=== PATIENT | female | born 1995 | race Caucasian/White ===

== ENCOUNTER 2016-06-18 07:18 | Emergency (ER) | payer OTHER ==
[~2016-06-18] VITALS: Ht 157.5 cm; Wt 52.2 kg
[~2016-06-18 07:18] MED LIST: ANUSOL HC-HEMOR1 SUP RC; ANUSOL-HC25 M1 RC; AUGMENTIN 875-1 EACH PO; DOXYCYCLINE HY100 MG PO; LOMOTIL 2.5-0.1 EACH PO; PROVENTIL HFA6.7 GM INH; TESSALON PERLE100 M1 PO; TRAMADOL HCL50 M1 PO
--- NOTE | 2016-06-18 07:39 | ED GI/GU/ABDOMINAL COMPLAINT ---
History of Present Illness General Chief Complaint: Abdominal Pain/Flank Pain Stated Complaint: ABD PAIN X1HR Source: patient, family Exam Limitations: no limitations Vital Signs & Intake/Output Vital Signs & Intake/Output Vital Signs Date Time Temp Pulse Resp B/P Pulse O2 O2 Flow FiO2 Ox Delivery Rate 06/18 1131 98.6 85 18 114/84 98 Room Air 06/18 0907 97.6 76 18 112/73 98 Room Air 06/18 0845 63 18 118/75 100 Room Air 06/18 0728 98.6 88 18 115/78 100 Room Air Allergies Coded Allergies: NO KNOWN ALLERGIES (03/22/16) Reconcile Medications Albuterol Sulfate (Proventil Hfa) 90 MCG HFA.AER.AD 2 PUF INH Q4 PRN SEVERE COUGH Amoxicillin/Potassium Clav (Augmentin 875-125 Tablet) 875 MG-125 MG TABLET 1 TAB PO BID SINUSITIS Anusol Hc (Anusol Hc-Hemorrhoidal Hc Supp) 1 SUP SUP 1 SUP RC BID ANAL FISSURE Anusol Hc (Anusol-Hc) 25 MG SUPP.RECT 1 SUP RC BID PRN rectal bleeding Benzonatate (Tessalon Perle) 100 MG CAPSULE 1 CAP PO TID PRN COUGH Diphenoxylate HCl/Atropine (Lomotil 2.5-0.025 MG Tablet) 2.5 MG-0.025 MG TABLET 1 TAB PO 4 TIMES/DAY PRN DIARRHEA TWENTY...[id number] Doxycycline Hyclate 100 MG CAP 100 MG PO DAILY ACNE (Reported) Hydromorphone HCl (Dilaudid) 2 MG TABLET 1 TAB PO BIDP PRN PAIN Tramadol HCl 50 MG TABLET 1 TAB PO BIDP PRN pain Triage Nurses Notes Reviewed? yes ? N Is pt currently ? No Onset: Abrupt Duration: hour(s): (1) Timing: single episode today Quality/Severity: sharpness, severe, stabbing Severity Numbers: 10 Location: left lower quadrant Activities at Onset: sleep No Modifying Factors: none Associated Symptoms: abdominal pain, NAUSEA HPI: This is a 20-year-old female presents to the ER with her mother for chief complaint of sudden onset of left lower quadrant abdominal pain severe, sharp in nature which woke her up from sleep. No history of similar symptoms. Denies any vomiting but was nauseous earlier home. Denies any fever or chills. Denies chance of . Patient with history of endometriosis, ovarian cyst with prior ovarian cystectomy. She also has a history of ulcerative colitis on prednisone and mild. Patient denies any similar symptoms with previous ovarian cyst. Past History Travel History Traveled to [place] past 21 day No Medical History Any Pertinent Medical History? 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 Yes Review of Systems Review of Systems Constitutional: Denies: chills, fever. EENTM: Reports: no symptoms. Respiratory: Denies: cough, short of breath. Cardiovascular: Denies: chest pain. GI: Reports: abdominal pain, nausea. Denies: vomiting. Genitourinary: Denies: discharge, dysuria, frequency, hematuria. Musculoskeletal: Denies: back pain. Skin: Reports: no symptoms. Neurological/Psychological: Reports: no symptoms. Hematologic/Endocrine: Denies: bruising, bleeding, polyuria, polydipsia. Immunologic/Allergic: Denies: splenectomy. All Other Systems: Reviewed and Negative Physical Exam Physical Exam General Appearance: alert, awake, anxious, moderate distress, thin Head: atraumatic, active bleeding Eyes: Bilateral: normal appearance, PERRL, EOMI. Ears, Nose, Throat, Mouth: hearing grossly normal, moist mucous membrane Neck: normal inspection, supple, full range of motion Respiratory: normal breath sounds, chest non-tender, no respiratory distress Cardiovascular: regular rate/rhythm Peripheral Pulses: 2+ radial (R), 2+ radial (L) Gastrointestinal: normal bowel sounds, soft, tenderness (LLQ) Extremities: normal range of motion Neurologic/Psych: no motor/sensory deficits, awake, alert, oriented x 3 Skin: intact, normal color, warm/dry Core Measures ACS in differential dx? No Severe Sepsis Present: No Septic Shock Present: No Progress Differential Diagnosis: ectopic , kidney stone, ovarian cyst, ovarian torsion, UTI/pyelo Plan of Care: Orders Procedure Date/time Status URINALYSIS 06/18 899 Complete Add-on Test (ER Only) 06/18 0754 Active PARTIAL THROMBOPLASTIN TIME 06/18 737 Complete PROTHROMBIN TIME 06/18 737 Complete HUMAN BETA HCG SCREEN 06/18 737 Complete CBC WITHOUT DIFFERENTIAL 06/18 737 Complete TYPE & SCREEN (NOT X-MATCH) 06/18 737 Complete COMPREHENSIVE METABOLIC PANEL 06/18 729 Complete Laboratory Tests 06/18/16 1039: Urine Color STRAW, Urine Clarity CLEAR, Urine pH 6.5, Ur Specific [place] 1.015, Urine Protein NEG, Urine Ketones NEG, Urine Nitrite NEG, Urine Bilirubin NEG, Urine Urobilinogen 0.2, Ur Leukocyte Esterase NEG, Ur Microscopic SEDIMENT EXAMINED, Urine RBC 5-10 H, Urine Hemoglobin MOD H, Urine Glucose NEG 06/18/16 0748: Sodium Cancelled, Potassium Cancelled, Chloride Cancelled, Carbon Dioxide Cancelled, Anion Gap Cancelled, BUN Cancelled, Creatinine Cancelled, BUN/ Creatinine Ratio Cancelled, Glucose Cancelled, Calcium Cancelled, Total Bilirubin Cancelled, AST Cancelled, ALT Cancelled, Alkaline Phosphatase Cancelled, Total Protein Cancelled, Albumin Cancelled, Globulin Cancelled, Albumin/Globulin Ratio Cancelled, APTT Cancelled 06/18/16737: PT 9.5, INR 0.90, APTT 24 L 06/18/16729: Anion Gap 13, Estimated GFR > 60, BUN/Creatinine Ratio 28.3 H, Glucose 105 H, Calcium 9.1, Total Bilirubin 0.3, AST 16, ALT 24, Alkaline Phosphatase 58, Total Protein 6.3, Albumin 3.3 L, Globulin 3.0, Albumin/Globulin Ratio 1.1, Total Beta HCG NEGATIVE, CBC w Diff NO MAN DIFF REQ, RBC 3.52 L, MCV 90.3, MCH 29.9, RDW 14.6 H, MPV 5.8 L, Gran % 83.4 H, Lymphocytes % 12.4 L, Monocytes % 3.9, Eosinophils % 0.1, Basophils % 0.2, Absolute Granulocytes 11.1 H, Absolute Lymphocytes 1.7, Absolute Monocytes 0.5, Absolute Eosinophils 0, Absolute Basophils 0, PUBS MCHC 33.2 8:45 am iv morphine ordered. pain somewhat improved after iv toradol but still present. 9:09 am iv zofran, iv tylenol ordered. u/s pending. 06/18/2016 9:20:27 AM Patient is screaming out in pain. IV Dilaudid ordered. Reading room called and states ultrasound report should be back in about [address] scan of the abdomen shows some perinephric fluid, question of recently passed stone. Patient provided urinary strainer, follow-up with MANAGER [facility]PDES[facility] and urology. Comfortable at time of discharge. Plan of care discussed also with mother at bedside. (RICH CALIXTO,VANESSA) Diagnostic Imaging: Viewed by Me: CT Scan, Ultrasound. Discussed w/RAD: CT Scan, Ultrasound. Radiology Impression: PATIENT: REBEL ZAMORA PRESENT AGE: 20 PATIENT ACCOUNT NO: [id number] : 96 LOCATION: [facility] ORDERING PHYSICIAN: VANESSA VILLANUEVA MD SERVICE DATE: 06/18/16 EXAM TYPE: US - US-TRANSVAGINAL EXAMINATION: ULTRASOUND PELVIC, COMPLETE CLINICAL INFORMATION: Sudden onset left lower quadrant pain, one hour prior to admission. COMPARISON: CT abdomen and pelvis 05/15/2016 TECHNIQUE: Transabdominal and transvaginal imaging of the pelvis was performed. FINDINGS: The anteverted uterus is of normal size and echogenicity measuring 5.3 x 2.9 x 4.0 cm. A regular homogeneous endometrium is identified measuring 0.2 cm. Both ovaries are of normal size and echogenicity. The right measures 2.5 x 1.4 x 1.2 cm for a volume of 2.32 mL. The left measures 2.1 x 1.9 x 1.1 cm for a volume of 2.35 mL. Normal arterial and venous flow is identified within both ovaries. There is moderate amount of pelvic free fluid in the anterior cul-de-sac. IMPRESSION: 1. Arterial and venous flow identified in both ovaries. 2. Moderate amount of free fluid in the anterior cul-de-sac. DICTATED BY: YAMILET PENA MD DATE/TIME DICTATED:06/18/16910 NURSING PROGRAM COORDINATOR:BETTY DATE/TIME TRANSCRIBED:910 CONFIDENTIAL, DO NOT COPY WITHOUT APPROPRIATE AUTHORIZATION. < Electronically signed in Other Vendor System> SIGNED BY: YAMILET PENA MD 06/18/16920 Initial ED EKG: none Departure Departure Time of Disposition: 1119 Disposition: HOME OR SELF CARE Condition: Stable Clinical Impression Primary Impression: Free fluid in pelvis Secondary Impressions: Hematuria Referrals: CHELSIE CALIXTO,FROY Valladares (PCP/Family) PEGGY CALIXTO,BECCA DAMON MD,KRISTA [place] Additional Instructions: Follow-up with your MANAGER HELPDESK Dr. Damon and with Dr. Mcgee who is listed on your discharge papers. Continue your regular medications. Take the pain medication as directed which is at your pharmacy. Strain your urine. Drink plenty of fluids. Return to the ER for any changing or worsening symptoms. Departure Forms: Customer Survey General Discharge Information Prescriptions: Current Visit Scripts Hydromorphone HCl (Dilaudid) 1 TAB PO BIDP PRN PAIN #10 TAB
[2016-06-18 08:08] LABS: ABSOLUTE BASOPHIL COUNT 0 /CUMM (0.0-0.2); ABSOLUTE EOSINOPHIL COUNT 0 /CUMM (0.0-0.7); ABSOLUTE GRANULOCYTE CT 11.1 /CUMM (1.4-6.5); ABSOLUTE LYMPH COUNT 1.7 /CUMM (1.2-3.4); ABSOLUTE MONOCYTE COUNT 0.5 /CUMM (0.10-0.60); BASOPHIL % 0.2 % (0.0-2.0); EOSINOPHIL % 0.1 % (0-5); HEMATOCRIT 31.8 % (37-47); MEAN CORPUSCULAR HGB 29.9 PG (27.0-31.0); MEAN CORPUSCULAR HGB CONC 33.2 G/DL (33.0-37.0); MEAN CORPUSCULAR VOLUME 90.3 FL (81.0-99.0); MEAN PLATELET VOLUME 5.8 FL (7.4-10.4); PLATELET COUNT 627 /CUMM (130-400); RBC DISTRIBUTION WIDTH 14.6 % (11.5-14.5); RED BLOOD CELL CT 3.52 /CUMM (4.20-5.40); WHITE BLOOD CELL COUNT 13.3 /CUMM (4.8-10.8)
[2016-06-18 08:23] LABS: PT 9.5 SEC (9.4-12.5); PTT 24 SEC (25-37)
[2016-06-18 08:27] LABS: GRANULOCYTE % 83.4 % (42.2-75.2)
--- NOTE | 2016-06-18 09:21 | ULTRASOUND REPORT ---
EXAMINATION: ULTRASOUND PELVIC, COMPLETE CLINICAL INFORMATION: Sudden onset left lower quadrant pain, one hour prior to admission. COMPARISON: CT abdomen and pelvis 05/15/2016 TECHNIQUE: Transabdominal and transvaginal imaging of the pelvis was performed. FINDINGS: The anteverted uterus is of normal size and echogenicity measuring 5.3 x 2.9 x 4.0 cm. A regular homogeneous endometrium is identified measuring 0.2 cm. Both ovaries are of normal size and echogenicity. The right measures 2.5 x 1.4 x 1.2 cm for a volume of 2.32 mL. The left measures 2.1 x 1.9 x 1.1 cm for a volume of 2.35 mL. Normal arterial and venous flow is identified within both ovaries. There is moderate amount of pelvic free fluid in the anterior cul-de-sac. IMPRESSION: 1. Arterial and venous flow identified in both ovaries. 2. Moderate amount of free fluid in the anterior cul-de-sac.
--- NOTE | 2016-06-18 10:59 | CT SCAN REPORT ---
EXAMINATION: CT ABDOMEN AND PELVIS WITH CONTRAST CLINICAL INFORMATION: Colitis. Severe left lower quadrant pain COMPARISON: 05/15/2016 TECHNIQUE: Multidetector volumetric imaging was performed of the abdomen and pelvis before and after the IV administration of 100 mL of Omnipaque 300 intravenous contrast. Sagittal and coronal reformatted images were obtained on the technologist's workstation. DLP: 263 mGy-cm. FINDINGS: LUNG BASES: The visualized lung bases are unremarkable. LIVER, GALLBLADDER, AND BILIARY TREE: The liver is normal in size, shape, and attenuation. No focal hepatic lesion or biliary ductal dilatation is present. The gallbladder is unremarkable with no evidence of radiopaque gallstones, gallbladder wall thickening, or obvious pericholecystic inflammatory changes. PANCREAS: Unremarkable. SPLEEN: Prominent splenule inferiorly. ADRENAL GLANDS: Unremarkable. KIDNEYS AND URETERS: There are asymmetric nephrograms with the left delayed compared to right. No definite hydronephrosis. The renal arteries appear to be grossly patent and the renal vein is also patent. There is minimal left perinephric stranding. BLADDER: Unremarkable. GASTROINTESTINAL TRACT: Previously noted inflammatory changes about the distal colon has been resolved. No fluid collections. Moderate amount stool right colon. Cecal base normal. ABDOMINAL WALL: No significant hernia is appreciated. LYMPH NODES: Normal. VASCULAR: Unremarkable. PELVIC VISCERA: Unremarkable. Physiologic free fluid. OSSEOUS STRUCTURES: Unremarkable. IMPRESSION: 1. No residual or recurrent colitis pattern distal colon when correlated to baseline. No residual abnormality or any fluid collection. 2. Asymmetric delayed nephrogram on the left with patency of the vessels. This may be on the basis of infection. Correlate clinically. There is mild perinephric fluid but no hydronephrosis.
[2016-06-18] MEDS ORDERED: DILAUDID2 M1 PO (11:22)
[2016-06-18 11:31] VITALS: BP 114/84
== END 2016-06-18 11:54 ==
LOC: ERH 07:18
PROVIDERS: Emergency Medicine
DX: R18.8 Other ascites (principal); R31.9 Hematuria, unspecified
CPT/HCPCS: 74177; 81001; 96374; 96375; J0131; J1885; J2405

== ENCOUNTER 2016-09-20 22:36 | Emergency (ER) | payer OTHER ==
[~2016-09-20] VITALS: Ht 162.6 cm; Wt 54.4 kg
[~2016-09-20 22:36] MED LIST changes: +DILAUDID2 M1 PO
--- NOTE | 2016-09-21 00:04 | ED THROAT/DENTAL COMPLAINT ---
History of Present Illness General Chief Complaint: Sore Throat, Dental Pain Stated Complaint: "I HAVE A SORE THROAT AND WANT A STREP TEST" Source: patient Exam Limitations: no limitations Vital Signs & Intake/Output Vital Signs & Intake/Output Vital Signs Date Time Temp Pulse Resp B/P Pulse O2 O2 Flow FiO2 Ox Delivery Rate 09/21 0005 98.9 86 18 105/70 99 Room Air 09/20 2259 99.0 88 16 102/71 99 Room Air ED Intake and Output 09/21 0000 09/20 1200 Intake Total Output Total Balance Patient 120 lb Weight Allergies Coded Allergies: NO KNOWN ALLERGIES (03/22/16) Reconcile Medications Albuterol Sulfate (Proventil Hfa) 90 MCG HFA.AER.AD 2 PUF INH Q4 PRN SEVERE COUGH Amoxicillin/Potassium Clav (Augmentin 875-125 Tablet) 875 MG-125 MG TABLET 1 TAB PO BID SINUSITIS Anusol Hc (Anusol Hc-Hemorrhoidal Hc Supp) 1 SUP SUP 1 SUP RC BID ANAL FISSURE Anusol Hc (Anusol-Hc) 25 MG SUPP.RECT 1 SUP RC BID PRN rectal bleeding Benzonatate (Tessalon Perle) 100 MG CAPSULE 1 CAP PO TID PRN COUGH Diphenoxylate HCl/Atropine (Lomotil 2.5-0.025 MG Tablet) 2.5 MG-0.025 MG TABLET 1 TAB PO 4 TIMES/DAY PRN DIARRHEA TWENTY...[id number] Doxycycline Hyclate 100 MG CAP 100 MG PO DAILY ACNE (Reported) Hydromorphone HCl (Dilaudid) 2 MG TABLET 1 TAB PO BIDP PRN PAIN Tramadol HCl 50 MG TABLET 1 TAB PO BIDP PRN pain Triage Note: RECEIVED 20 YO FEMALE C/O SORE THROAT X 2 DAYS WITH DIFFICULTY SWALLOWING Triage Nurses Notes Reviewed? yes : No Patient currently breastfeeds: No HPI: Patient is a 20-year-old female presents complaining of sore throat. Sore throat 3 days. Pain is mild, worse with swallowing. Patient has been able to tolerate food and liquids. Patient is on Humira injections every 2 weeks for ulcerative colitis. Patient denies fevers, chills, ear pain, cough, dyspnea, sick contacts. (KATJA COATES,AYAAN) Past History Travel History Traveled to [place] past 21 day No Medical History Any Pertinent Medical History? 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 No (AYAAN VEGA) Review of Systems Review of Systems Constitutional: Denies: chills, fever. EENTM: Reports: see HPI. Respiratory: Denies: cough, short of breath. Cardiovascular: Denies: chest pain. GI: Denies: abdominal pain, vomiting. Musculoskeletal: Reports: no symptoms. Skin: Reports: no symptoms. Neurological/Psychological: Denies: headache. Hematologic/Endocrine: Denies: bruising, bleeding. Immunologic/Allergic: Reports: other (on humira). Denies: splenectomy. (AYAAN VEGA) Physical Exam Physical Exam General Appearance: well developed/nourished, alert, awake Head: atraumatic, normal appearance Eyes: Bilateral: normal appearance, PERRL, EOMI. Ears: Bilateral: canal normal, Tympanic normal. Nose: normal inspection Mouth/Throat: normal mouth inspection, pharynx normal, no tonsillar exudates Neck: normal inspection, supple, full range of motion Cardiovascular/Respiratory: normal breath sounds, regular rate/rhythm, no respiratory distress Back: normal inspection, normal range of motion Neurologic/Psych: no motor/sensory deficits, awake, alert, oriented x 3, normal gait, normal mood/affect Skin: intact, normal color, warm/dry Core Measures ACS in differential dx? No Severe Sepsis Present: No Septic Shock Present: No (AYAAN VEGA) Progress Differential Diagnosis: epiglottitis, meningitis, strep pharyngitis, infectious mononucleosis, viral URI Plan of Care: Orders Procedure Date/time Status THROAT CULTURE W/QUICK STREP 09/21 2247 Active Patient afebrile, nontoxic-appearing, tolerating oral intake appropriately. Results of rapid strep test discussed with patient. Patient appears stable for discharge. (AYAAN VEGA) Departure Departure Time of Disposition: 6 Disposition: HOME OR SELF CARE Condition: Stable Clinical Impression Primary Impression: Pharyngitis Qualifiers: Pharyngitis/tonsillitis etiology: unspecified etiology Qualified Code: J02.9 - Acute pharyngitis, unspecified Referrals: CHELSIE CALIXTO,FROY Valladares (PCP/Family) Additional Instructions: Drink plenty fluids and rest. Tylenol as directed for pain. Follow-up with your primary doctor if no improvement within 2-3 days. Return to the emergency department if difficulty breathing, swallowing becomes more difficult, unable to say hydrated, or worsening of symptoms. Departure Forms: Customer Survey General Discharge Information (AYAAN VEGA) PA/MECHANICAL DEVELOPMENT ENGINEER Co-Sign Statement Statement: ED Attending supervision documentation- [] I saw and evaluated the patient. I have also reviewed all the pertinent lab results and diagnostic results. I agree with the findings and the plan of care as documented in the PA's/MECHANICAL DEVELOPMENT ENGINEER's documentation. [x] I have reviewed the ED Record and agree with the PA's/MECHANICAL DEVELOPMENT ENGINEER's documentation. [] Additions or exceptions (if any) to the PAs/MECHANICAL DEVELOPMENT ENGINEER's note and plan are summarized below: [] (JACINTO CALIXTO,GILBERT Pitt)
[2016-09-21 00:05] VITALS: BP 105/70
== END 2016-09-21 00:14 ==
LOC: ERH 22:36
DX: J02.9 Acute pharyngitis, unspecified (principal)